=== PATIENT | female | born 1975 | race American Indian/Alaskan Native ===

== ENCOUNTER 2019-01-02 10:47 | Day surgery (SDC) | payer OTHER ==
[2019-01-02] MEDS ORDERED: MARCAINE 0.5% INFILTRATI ONE ×3 (12:04→14:02)
--- NOTE | 2019-01-02 12:09 | Anesthesia Consultation ---
Anesthesia Consult and Med Hx Date of service: 01/02/19 - Airway Anesthetic Teeth Evaluation: Good ROM Head & Neck: Adequate Mental/Hyoid Distance: Adequate Mallampati Class: Class I Intubation Access Assessment: Good - Pulmonary Exam CTA: Yes - Cardiac Exam Cardiac Exam: RRR Anesthetic Concerns: Arthritis in knees primarily. Denies neck involveement. retirement chronic steroid use (Prednisone every other day). Last dose 01/01/19. - Pre-Operative Health Status ASA Pre-Surgery Classification: ASA3 Proposed Anesthetic Plan: General - Pulmonary Hx Smoking: Yes (1/2 PPD) - Central Nervous System Hx Psychiatric Problems: No - Other Systems Hx Alcohol Use: Yes (Occas) Hx Cancer: No
--- NOTE | 2019-01-02 12:10 | Anesthesia Day of Surgery ---
Anesthesia Day of Surgery - Day of Surgery Patient Examined: Yes Patient H&P Reviewed: Yes Patient is NPO: Yes
[2019-01-02] MEDS ORDERED: ANCEF/STERILE WATER 2 GM/20 ML IV NR (13:00)
[2019-01-02] MEDS ORDERED: LACTATED RINGERS 1,000 ML IV SCH (13:00)
[2019-01-02] MEDS ORDERED: VERSED IV NR (13:00)
[2019-01-02] MEDS ORDERED: SUBLIMAZE ONE (13:17)
[2019-01-02] MEDS ORDERED: DIPRIVAN 10 MG/ML IV ONE (13:18)
[2019-01-02] MEDS ORDERED: QUELICIN ONE ×2 (13:18→13:20)
[2019-01-02] MEDS ORDERED: ZOFRAN ONE (13:19)
[2019-01-02] MEDS ORDERED: DECADRON ONE (13:19)
[2019-01-02] MEDS ORDERED: XYLOCAINE MPF 2% ONE (13:20)
[2019-01-02] MEDS ORDERED: NACL 0.9% IR ONE (14:02)
[2019-01-02] MEDS ORDERED: DILAUDID ONE ×2 (14:30→15:34)
[2019-01-02] MEDS ORDERED: BLOXIVERZ ONE (14:55)
[2019-01-02] MEDS ORDERED: ROBINUL ONE (14:55)
[2019-01-02] MEDS ORDERED: TORADOL ONE ×2 (15:00)
--- NOTE | 2019-01-02 15:44 | Operative Report ---
Operative Report Operative Report: Preoperative diagnosis: Chronic pelvic pain. Postoperative diagnosis: 1. Bilateral simple ovarian cysts. 2. pelvic congestion syndrome. Procedure: 1. Diagnostic laparoscopy. 2. Bilateral ovarian cystotomy. Surgeon: Dr. Kelley Inspector Type: none Anesthesia: general EBL: negligible IVF: RL 1 liter Complications: none Intraoperative findings: 1. Normal uterus and fallopian tubes. 2. Bilateral simple ovarian cysts measuring about 2-2.5 cm. 3. Pelvic congestion. Procedure details: Risks, benefits, and alternatives of the procedure were discussed in detail with the patient which included but not limited to risk of infection, hemorrhage requiring blood transfusion, injury to the bowel or bladder and blood vessels, risk of having the procedure converted to an open laparotomy. The patient expressed understanding, her questions were answered, and she gave informed consent. The patient was taken to the operating room with an IV fluid using Ringer's lactate. In the operating room, she was placed in a dorsal supine position and given general anesthesia. She was then placed on the stirrups in a dorsal lithotomy position. The perineum, vagina, cervix, and abdomen were washed and she was prepared and draped in the usual sterile fashion. Lizama catheter was placed. EUA revealed normal external genitalia, vagina and cervix. The uterus was 7-wk size, anterverted, mobile. The adnexae were non palpaple. A bivalve speculum was placed in the vagina and the anterior lip of the cervix was grasped with a single-tooth tenaculum. A HUMI uterine manipulator was advanced into the uterine cavity to provide a means of manipulating the uterus and the procedure. The speculum and tenaculum were then removed. Attention was then turned to the patient's abdomen where a 5 mm skin incision was made in the infraumbilical fold. The Veress needle was introduced into the peritoneal cavity while tenting the abdominal wall. Intraperitoneal placement was confirmed by using a water-filled syringe and by noticing a drop in the intra-abdominal pressure with CO2 gas insufflation. The trocar and sleeves were then advanced without difficulty into the abdomen where intraperitoneal placement was confirmed using laparoscope. Pneumoperitoneum was achieved with 3.5 L of CO2 gas. A second 5 mm skin incision was made in the left lower quadrant and a 5 mm trocar and sleeves were then advanced into the abdominal cavity under direct visualization with the laparoscope. A quick survey of the anatomy revealed a normal uterus, fallopian tubes, bilateral simple ovarian cysts measuring about 2-2.5 cm, and pelvic congestion. A third port was created suprapubically and a 5-mm trocar and sleeves were advanced into the abdomen under the direct visualization with the laparoscope. The cysts were drained off scant straw colored fluid. Good hemostasis was confirmed. The ports were then opened to release to CO2 gas from the abdomen. The instruments were then removed. The ports were closed with 3.0 vicryl sutures. Steri-Strip and Tegaderm were placed. The HUMI uterine manipulator was then removed from the uterine cavity. The counts of laps, needles, sponges, and instruments were correct 2. The patient tolerated the procedure well. She was awakened from anesthesia and taken to the recovery room in a stable condition.
[2019-01-02] MEDS ORDERED: PERCOCET 5/325 ONE (16:31)
[2019-01-02] MEDS ORDERED: PERCOCET 5/325 PO PRN (16:31)
[2019-01-02 21:42] VITALS: BP 132/72
== END 2019-01-02 10:48 | disposition home or self-care (01) ==
LOC: OR 10:47
PROVIDERS: ATTEND Obstetrics & Gynecology
DX: N83.201 Unspecified ovarian cyst, right side (principal); N83.202 Unspecified ovarian cyst, left side; F17.210 Nicotine dependence, cigarettes, uncomplicated; M06.9 Rheumatoid arthritis, unspecified; Z79.899 Other long term (current) drug therapy; Z90.49 Acquired absence of other specified parts of digestive tract; Z72.89 Other problems related to lifestyle; Z98.890 Other specified postprocedural states
CPT/HCPCS: 49320; 81025; J0330; J0690; J1100; J1170; J1885; J2250; J2405; J2704; J2710; J3010; J7120